=== PATIENT | female | born 1960 | race Two or more races ===

== ENCOUNTER 2017-02-18 18:11 | Emergency (ER) | payer SELFPAY ==
--- NOTE | 2017-02-18 21:01 | EDM.PDOC ---
ED HPI GENERAL MEDICAL PROBLEM - General Chief Complaint: Respiratory Problem Stated Complaint: FEVER,COUGH,CHEST CONGESTION Time Seen by Provider: 02/18/17 19:15 Source of Information: Reports: Patient, Family History Limitations: Reports: Language Barrier (Family speak good Kazakh) - History of Present Illness INITIAL COMMENTS - FREE TEXT/NARRATIVE: The patient presents with a fever, cough, congestion, runny nose, and bodyaches. This has been going on for 48 hours. She also has some shortness or breath. She has no medical problems like asthma or COPD. She does not smoke. Onset: Gradual Duration: Day(s): (2) Severity: Moderate Improves with: Reports: None Worsens with: Reports: None Associated Symptoms: Reports: Cough, Fever/Chills Headache Pain Score (Numeric/FACES): 10 - Related Data Allergies Allergy/AdvReac Type Severity Reaction Status Date / Time No Known Allergies Allergy Verified 02/18/17 18:43 Home Meds: Home Meds Oseltamivir [Tamiflu] 75 mg PO BID #10 cap 02/18/17 [Rx] Past Medical History - Past Health History Medical/Surgical History: Denies Medical/Surgical History Gastrointestinal History: Reports: GERD Social & Family History - Family History Family Medical History: Noncontributory - Tobacco Use Smoking Status *Q: Never Smoker - Recreational Drug Use Recreational Drug Use: No ED ROS GENERAL - Review of Systems Review Of Systems: See Below Constitutional: Reports: Fever, Chills, Malaise, Weakness, Fatigue HEENT: Reports: Other (Congestion and runny nose) Respiratory: Reports: Shortness of Breath, Cough Cardiovascular: Reports: No Symptoms Endocrine: Reports: No Symptoms GI/Abdominal: Reports: No Symptoms : Reports: No Symptoms Musculoskeletal: Reports: Muscle Stiffness ED EXAM, GENERAL - Physical Exam Exam: See Below Exam Limited By: No Limitations General Appearance: Alert, No Apparent Distress Eye Exam: Right Eye: Globe Laceration Ears: Normal External Exam, Normal Canal, Normal TMs Nose: Normal Inspection Throat/Mouth: Normal Inspection Head: Atraumatic, Normocephalic Neck: Normal Inspection Respiratory/Chest: No Respiratory Distress, Lungs Clear, Normal Breath Sounds Cardiovascular: Regular Rate, Rhythm, No Edema, No Murmur GI/Abdominal: Soft, Non-Tender, No Organomegaly, No Mass Back Exam: Normal Inspection Extremities: Normal Inspection Neurological: Alert, Oriented, No Motor/Sensory Deficits Course - Vital Signs Last Recorded V/S: Last Vital Signs Temp 100.3 F 02/18/17 18:44 Pulse 80 02/18/17 18:44 Resp 20 02/18/17 18:44 BP 127/66 02/18/17 18:44 Pulse Ox 97 02/18/17 18:44 - Orders/Labs/Meds Orders: Active Orders 24 hr Category Date Time Status CXR [Chest 2V] [CR] Stat Exams 02/18/17 19:24 Taken - Re-Assessments/Exams Free Text/Narrative Re-Assessment/Exam: 02/18/17 20:59 Her CXR looks good. She is influenza A positive. I will get her on some tamiflu and her and son. Departure - Departure Time of Disposition: 21:00 Disposition: Home, Self-Care 01 Condition: Good Clinical Impression: Influenza A - Discharge Information Prescriptions: Oseltamivir [Tamiflu] 75 mg PO BID #10 cap Referrals: PCP,None [Primary Care Provider] - Brunilda Allen MD [Physician] - 1 Week Additional Instructions: Take the tamiflu 2 times per day for 5 days. Take tylenol or motrin for any pain. Drink plenty of fluids and get some rest. Please return if you are worse. - My Orders Last 24 Hours: My Active Orders 02/18/17 19:24 CXR [Chest 2V] [CR] Stat - Assessment/Plan Last 24 Hours: My Active Orders 02/18/17 19:24 CXR [Chest 2V] [CR] Stat
--- NOTE | 2017-02-19 07:42 | CR ---
Chest: Two views of the chest were obtained. Comparison: No prior chest x-ray. Heart size at the upper limits of normal. Tortuous thoracic aorta is seen. Lungs are clear but hyperinflated. Bony structures are within normal limits for the patient's age. Impression: 1. Hyperinflated lungs compatible with emphysematous change. 2. Other incidental findings. Nothing acute is seen. Diagnostic code #2
== END 2017-02-18 21:15 | disposition home or self-care (01) ==
LOC: JD.ED 18:11
DX: J10.1 Influenza due to other identified influenza virus with other respiratory manifestations (principal)
CPT/HCPCS: 71020; 71020-26; 87804; 99283; 99284

== ENCOUNTER 2017-10-27 19:36 | Emergency (ER) | payer SELFPAY ==
--- NOTE | 2017-10-27 20:04 | EDM.PDOC ---
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 Symptoms have been coming and going. No weakness. No headache, although she briefly had some posterior neck discomfort. No throat tightness or difficulty swallowing. No chest pain. No palpitations. No shortness of breath. No abdominal pain. No nausea, vomiting, constipation, or diarrhea. No urinary symptoms. The patient has had tingling of her hands and feet. She denies the sensation of walking on rubber legs. She does feel anxious. No prior similar symptoms. Here in the ED, it is noted that the patient's oxygen saturation is 100% on room air. The patient does not have a PCP. - Related Data Allergies Allergy/AdvReac Type Severity Reaction Status Date / Time No Known Allergies Allergy Verified 02/18/17 18:43 Past Medical History Gastrointestinal History: Reports: GERD, Other (See Below) Other Gastrointestinal History: pt states she had surgery for this but does not remember the name of it-done 2014 - Past Surgical History GI Surgical History: Reports: Other (See Below) (Surgery to treat GERD, gita 2014 - Ramona fundoplication?) Social & Family History - Family History Family Medical History: Noncontributory - Tobacco Use Smoking Status *Q: Never Smoker - Alcohol Use Alcohol Use History: No - Recreational Drug Use Recreational Drug Use: No - Living Situation & Occupation Living situation: Reports: , with Spouse Occupation: Employed ([employer]) ED ROS GENERAL - Review of Systems Review Of Systems: ROS reveals no pertinent complaints other than HPI. ED EXAM, GENERAL - Physical Exam Exam: See Below Exam Limited By: No Limitations General Appearance: Alert, WD/WN, No Apparent Distress Eye Exam: Bilateral Eye: EOMI, Normal Inspection, PERRL Ears: Normal External Exam, Hearing Grossly Normal Nose: Normal Inspection Throat/Mouth: Normal Inspection, Normal Lips, Normal Voice, No Airway Compromise Head: Atraumatic, Normocephalic Neck: Normal Inspection, Full Range of Motion Respiratory/Chest: No Respiratory Distress, Lungs Clear, Normal Breath Sounds, No Accessory Muscle Use Cardiovascular: Normal Peripheral Pulses, Regular Rate, Rhythm, No Edema, No Gallop, No JVD, No Murmur, No Rub Peripheral Pulses: 4+: Radial (L), Radial (R) GI/Abdominal: Normal Bowel Sounds, Soft, Non-Tender, No Organomegaly, No Distention, No Abnormal Bruit, No Mass (Female) Exam: Deferred Rectal (Female) Exam: Deferred Back Exam: Normal Inspection, Full Range of Motion, NT Extremities: Normal Inspection, Normal Range of Motion, No Pedal Edema, Normal Capillary Refill Neurological: Alert, Oriented, CN II-XII Intact, Normal Cognition, Other (the patient reports increased sensation to the let side of her face) Psychiatric: Anxious Skin Exam: Warm, Dry, Intact, Normal Color, No Rash EKG INTERPRETATION EKG Date: 10/27/17 Time: 20:11 Rhythm: Other (Sinus bradycardia) Rate (Beats/Min): 52 [place]: Normal P-Wave: Present QRS: Normal ST-T: Normal QT: Normal Comparison: NA - No Prior EKG Course - Vital Signs Last Recorded V/S: Last Vital Signs Temp 36.3 C 10/27/17 19:44 Pulse 67 10/27/17 19:44 Resp 20 10/27/17 19:44 BP 136/62 10/27/17 19:44 Pulse Ox 100 10/27/17 19:44 Orthostatic Blood Pressure [ 126/69 Standing] Orthostatic Blood Pressure [ 124/66 Supine] - Orders/Labs/Meds Orders: Active Orders 24 hr Category Date Time Status EKG Documentation Completion [RC] STAT Care 10/27/17 19:57 Active Orthostatic Vital Signs [RC] STAT Care 10/27/17 19:57 Active Chest 2V [CR] Stat Exams 10/27/17 19:57 Taken BLOOD GAS ARTERIAL [BG] Stat Lab 10/27/17 20:20 Results UA W/MICROSCOPIC [URIN] Stat Lab 10/27/17 20:51 Ordered Labs: Laboratory Tests 10/27/17 10/27/17 10/27/17 Range/Units 20:12 20:12 20:12 WBC 6.52 (3.98-10.04) K/mm3 RBC 3.94 L (3.98-5.22) M/mm3 Hgb 11.1 L (11.2-15.7) gm/L Hct 35.0 (34.1-44.9) % MCV 88.8 (79.4-94.8) fl MCH 28.2 (25.6-32.2) pg MCHC 31.7 L (32.2-35.5) g/dl RDW Std Deviation 47.1 H (36.4-46.3) fL Plt Count 297 (182-369) K/mm3 MPV 10.8 (9.4-12.3) fl Neutrophils % (Manual) 56 (40-60) % Band Neutrophils % 0 (0-10) % Lymphocytes % (Manual) 28 (20-40) % Atypical Lymphs % 1 % Monocytes % (Manual) 8 (2-10) % Eosinophils % (Manual) 4 (0.7-5.8) % Basophils % (Manual) 3 H (0.1-1.2) Platelet Estimate Adequate Plt Morphology Comment Normal Hypochromasia 1+ slight Poikilocytosis 1+ slight Anisocytosis 1+ slight Microcytosis 1+ slight Macrocytosis 1+ slight RBC Morph Comment Abnormal PT 10.8 (9.5-12.1) SECONDS INR 0.99 APTT 29 (24-31) SECONDS D-Dimer, Quantitative 0.31 (0.19-0.50) mg/L Puncture Site ABG pH (7.35-7.45) ABG pCO2 (35.0-45.0) mmHg ABG pO2 (80.0-100.0) mmHg ABG HCO3 (22.0-26.0) meq/L ABG O2 Saturation (96.0-97.0) % ABG Base Excess (-2-2.0) Turner Test O2 Delivery Device Oxygen Flow Rate FiO2 (21.00-100.00) % Sodium 141 (136-145) mEq/L Potassium 3.7 (3.5-5.1) mEq/L Chloride 106 (98-107) mEq/L Carbon Dioxide 28 (21-32) mEq/L Anion Gap 10.7 (5-15) BUN 15 (7-18) mg/dL Creatinine 0.8 (0.55-1.02) mg/dL Est Cr Clr Drug Dosing 74.38 mL/min Estimated GFR (MDRD) > 60 (>60) mL/min BUN/Creatinine Ratio 18.8 H (14-18) Glucose 98 (74-106) mg/dL Calcium 9.3 (8.5-10.1) mg/dL Magnesium 2.0 (1.8-2.4) mg/dl Total Bilirubin 0.3 (0.2-1.0) mg/dL AST 26 (15-37) U/L ALT 33 (14-59) U/L Alkaline Phosphatase 96 (46-116) U/L Troponin I < 0.017 (0.00-0.056) ng/mL Total Protein 8.1 (6.4-8.2) g/dl Albumin 4.1 (3.4-5.0) g/dl Globulin 4.0 gm/dL Albumin/Globulin Ratio 1.0 (1-2) TSH 3rd Generation 2.649 (0.358-3.74) uIU/mL Urine Color (Yellow) Urine Appearance (Clear) Urine pH (5.0-8.0) Ur Specific Happy (1.005-1.030) Urine Protein (Negative) Urine Glucose (UA) (Negative) Urine Ketones (Negative) Urine Occult Blood (Negative) Urine Nitrite (Negative) Urine Bilirubin (Negative) Urine Urobilinogen (0.2-1.0) Ur Leukocyte Esterase (Negative) Urine RBC (0-5) /hpf Urine WBC (0-5) /hpf Ur Epithelial Cells (0-5) /hpf Urine Bacteria (FEW) /hpf Urine Mucus (FEW) /hpf 10/27/17 10/27/17 Range/Units 20:20 20:51 WBC (3.98-10.04) K/mm3 RBC (3.98-5.22) M/mm3 Hgb (11.2-15.7) gm/L Hct (34.1-44.9) % MCV (79.4-94.8) fl MCH (25.6-32.2) pg MCHC (32.2-35.5) g/dl RDW Std Deviation (36.4-46.3) fL Plt Count (182-369) K/mm3 MPV (9.4-12.3) fl Neutrophils % (Manual) (40-60) % Band Neutrophils % (0-10) % Lymphocytes % (Manual) (20-40) % Atypical Lymphs % % Monocytes % (Manual) (2-10) % Eosinophils % (Manual) (0.7-5.8) % Basophils % (Manual) (0.1-1.2) Platelet Estimate Plt Morphology Comment Hypochromasia Poikilocytosis Anisocytosis Microcytosis Macrocytosis RBC Morph Comment PT (9.5-12.1) SECONDS INR APTT (24-31) SECONDS D-Dimer, Quantitative (0.19-0.50) mg/L Puncture Site Rt radial ABG pH 7.36 (7.35-7.45) ABG pCO2 43.6 (35.0-45.0) mmHg ABG pO2 90.0 (80.0-100.0) mmHg ABG HCO3 24.2 (22.0-26.0) meq/L ABG O2 Saturation 97.3 H (96.0-97.0) % ABG Base Excess -0.8 (-2-2.0) Turner Test Positive O2 Delivery Device Room air Oxygen Flow Rate 0.0 FiO2 21.00 (21.00-100.00) % Sodium (136-145) mEq/L Potassium (3.5-5.1) mEq/L Chloride (98-107) mEq/L Carbon Dioxide (21-32) mEq/L Anion Gap (5-15) BUN (7-18) mg/dL Creatinine (0.55-1.02) mg/dL Est Cr Clr Drug Dosing mL/min Estimated GFR (MDRD) (>60) mL/min BUN/Creatinine Ratio (14-18) Glucose (74-106) mg/dL Calcium (8.5-10.1) mg/dL Magnesium (1.8-2.4) mg/dl Total Bilirubin (0.2-1.0) mg/dL AST (15-37) U/L ALT (14-59) U/L Alkaline Phosphatase (46-116) U/L Troponin I (0.00-0.056) ng/mL Total Protein (6.4-8.2) g/dl Albumin (3.4-5.0) g/dl Globulin gm/dL Albumin/Globulin Ratio (1-2) TSH 3rd Generation (0.358-3.74) uIU/mL Urine Color Yellow (Yellow) Urine Appearance Clear (Clear) Urine pH 7.5 (5.0-8.0) Ur Specific Happy 1.020 (1.005-1.030) Urine Protein Negative (Negative) Urine Glucose (UA) Negative (Negative) Urine Ketones Negative (Negative) Urine Occult Blood Negative (Negative) Urine Nitrite Negative (Negative) Urine Bilirubin Negative (Negative) Urine Urobilinogen 0.2 (0.2-1.0) Ur Leukocyte Esterase Trace H (Negative) Urine RBC 0-5 (0-5) /hpf Urine WBC 0-5 (0-5) /hpf Ur Epithelial Cells 0-5 (0-5) /hpf Urine Bacteria Rare (FEW) /hpf Urine Mucus Not seen (FEW) /hpf - Re-Assessments/Exams Free Text/Narrative Re-Assessment/Exam: 10/27/17 20:31 2-view chest radiograph reviewed. Cardiac silhouette is within normal limits. No pulmonary vascular congestion. No pleural effusions. No focal infiltrate. No pneumothorax. There is hyperinflation and bilateral diaphragmatic flattening, insistent with COPD. 2 clive seen on the lateral view in the projection of the gastric air bubble incidentally noted. Formal read per the Radiologist pending. 10/27/17 20:57 The patient is not orthostatic. 10/27/17 21:51 The patient's workup tonight is unremarkable. Her blood gas does not reflect hyperventilation, although her symptoms, and her saturating 100% on room air, are consistent with hyperventilation syndrome. I will discharge the patient home , with referral to Val Solorzano as a PCP. Departure - Departure Time of Disposition: 21:52 Disposition: Home, Self-Care 01 Condition: Good Clinical Impression: Hyperventilation syndrome - Discharge Information *PRESCRIPTION DRUG MONITORING PROGRAM REVIEWED*: Not Applicable *COPY OF PRESCRIPTION DRUG MONITORING REPORT IN PATIENT EDWIN: Not Applicable Referrals: PCP,None [Primary Care Provider] - Val Solorzano PA [Physician [employer]] - Forms: ED Department Discharge Additional Instructions: You were seen in the emergency room for a poking sensation in your right neck, along with tingling and numbness of your whole body. Workup in the ER included blood work, an arterial blood gas, a urinalysis, a chest x-ray, positional blood pressure checks, and an ECG. Your entire workup was unremarkable. You have not suffered a heart attack. You do not have a blood clot in your lungs. You do not have a collapsed lung. You do not have pneumonia. Your thyroid level is normal. Based on your history and physical examination, your symptoms are MOST LIKELY due to hyperventilation syndrome, due to anxiety. While unpleasant, hyperventilation syndrome is not dangerous, however, if your symptoms persist, we recommend that you follow-up with Val Solorzano in the clinic, to discuss treatment options for anxiety. If any other problems, please do not hesitate to return to the ER. - My Orders Last 24 Hours: My Active Orders 10/27/17 19:57 EKG Documentation Completion [RC] STAT Orthostatic Vital Signs [RC] STAT Chest 2V [CR] Stat 10/27/17 20:20 BLOOD GAS ARTERIAL [BG] Stat 10/27/17 20:51 UA W/MICROSCOPIC [URIN] Stat - Assessment/Plan Last 24 Hours: My Active Orders 10/27/17 19:57 EKG Documentation Completion [RC] STAT Orthostatic Vital Signs [RC] STAT Chest 2V [CR] Stat 10/27/17 20:20 BLOOD GAS ARTERIAL [BG] Stat 10/27/17 20:51 UA W/MICROSCOPIC [URIN] Stat
--- NOTE | 2017-11-01 08:37 | CR ---
Chest: Two views of the chest were obtained. Comparison: Prior chest x-ray of 02/18/17. Heart size is slightly enlarged. Upper mediastinum is normal. Lungs are clear without acute parenchymal change. Bony structures are unremarkable. Surgical clips are seen within the upper abdomen. Impression: 1. Heart size is slightly enlarged. 2. Nothing acute is seen on two-view chest x-ray. Diagnostic code #2
== END 2017-10-27 22:07 | disposition home or self-care (01) ==
LOC: JD.ED 19:36
DX: F45.8 Other somatoform disorders (principal)
CPT/HCPCS: 36415; 36600; 71046; 71046-26; 80053; 81001; 82803; 83735; 84443; 84484; 85007; 85027; 85379; 85610; 85730; 93005; 93010; 99284-25